=== PATIENT | male | born 1955 | race Caucasian/White ===

== ENCOUNTER 2018-11-03 12:32 | Day surgery (SDC) | payer OTHER ==
[2018-11-02 12:21] VITALS: BMI 25.0
--- NOTE | 2018-11-03 07:21 | HP ---
HISTORY OF PRESENT ILLNESS: This is a 63-year-old male, referred to me by Dr. Chidi Warren for evaluation of positive and also chronic acid reflux. The patient has no history of any hematochezia or any melena. The patient has a history of chronic acid reflux over the years. He still takes an elry-szy-irjejcn medication. No dysphagia or odynophagia. The patient comes in for a colonoscopy for EGD because of chronic acid reflux, which is longstanding. ALLERGIES: NONE. MEDICAL ILLNESSES: 1. Chronic acid reflux. 2. Hyperlipidemia. 3. Anxiety and depression recently. 4. History of compression fracture of L1 many years ago. PHYSICAL EXAMINATION: VITAL SIGNS: Pulse is 70, blood pressure 120/70. HEENT: Conjunctivae clear. CARDIOVASCULAR SYSTEM: First and second heart sounds heard. LUNGS: Clear to auscultation. ABDOMEN: Soft. No organomegaly. No tenderness. No masses. ADMITTING DIAGNOSES: 1. Chronic acid reflux for EGD. 2. Screening colonoscopy. Job ID: [id number]
[~2018-11-03 12:32] MED LIST: PHENYLEPHRINE-NS 100 MCG/ML 10 ML SYRINGE ONE; PROPOFOL 200 MG/20 ML VIAL ONE
[2018-11-03] MEDS ORDERED: Midazolam HCl 2 mg/2 ml Vial ONE (13:47)
--- NOTE | 2018-11-03 15:40 | OP ---
DATE OF PROCEDURE: 11/03/2018 PROCEDURE PERFORMED: Colonoscopy with polypectomy. PREOPERATIVE DIAGNOSIS: A 63-year-old male undergoing colonoscopy for colon cancer screening. POSTOPERATIVE DIAGNOSES: 1. Mild sigmoid diverticular disease. 2. Sessile polyp, sigmoid colon, status post snare cautery with good hemostasis. 3. Hemorrhoids. DESCRIPTION OF PROCEDURE: The patient was placed on his left lateral position and was given sedation by Anesthesia Department. The rectal exam was done before the scope was advanced into the rectum. No lesions felt on rectal exam. A [employer] video colonoscope was introduced into the rectum and advanced all the way into the cecum. The prep was good. The mucosa appeared normal throughout the colon with normal vascular pattern. The appendiceal orifice, ileocecal wall, cecum, no pathology seen. Withdrawal of scope in the cecum, ascending colon, hepatic flexure, transverse colon, no pathology seen. The splenic flexure, descending colon, no pathology seen. The sigmoid colon showed mild diverticular disease. He has sessile polyp in the sigmoid colon. It removed with snare cautery with good hemostasis. Retroflexion of scope in the rectal showed hemorrhoids. DISCHARGE PLANNING: This is a 63-year-old male came for a colonoscopy for colon cancer screening. He underwent colonoscopy with polypectomy. DISCHARGE RECOMMENDATIONS: 1. The patient advised to call me if he develops abdominal pain, hematochezia. 2. In the absence of any of the above symptoms, he will come back to me in 2 weeks. Job ID: [id number]
== END 2018-11-03 15:15 | disposition home or self-care (01) ==
LOC: SDC 12:32
PROVIDERS: ATTEND Internal Medicine Gastroenterology
PROC: 0DBN8ZX Excision of Sigmoid Colon, Via Natural or Artificial Opening Endoscopic, Diagnostic (ICD-10-PCS; principal; 2018-11-03)
DX: Z12.11 Encounter for screening for malignant neoplasm of colon (principal); D12.5 Benign neoplasm of sigmoid colon; K57.30 Diverticulosis of large intestine without perforation or abscess without bleeding; K64.9 Unspecified hemorrhoids; K21.9 Gastro-esophageal reflux disease without esophagitis; E78.5 Hyperlipidemia, unspecified; F41.9 Anxiety disorder, unspecified; F32.9 Major depressive disorder, single episode, unspecified; Z79.899 Other long term (current) drug therapy
CPT/HCPCS: 88305; J2250; J2704